=== PATIENT | female | born 1980 | race Caucasian/White ===

== ENCOUNTER 2016-10-17 19:59 | Emergency (ER) | payer SELFPAY ==
[~2016-10-17 19:59] MED LIST: HYDR-906 PO; NAPR-260 PO
== END 2016-10-17 21:34 | disposition left against medical advice (07) ==
LOC: E/R 19:59
DX: Z53.21 Procedure and treatment not carried out due to patient leaving prior to being seen by health care provider (principal)

== ENCOUNTER 2017-01-20 19:18 | Emergency (ER) | payer MEDICAID ==
[~2017-01-20] VITALS: Ht 152.4 cm; Wt 56.0 kg
[2017-01-20 19:34] VITALS: Ht 152.4 cm; Wt 56.0 kg
[2017-01-20] MEDS: KETOROLAC 15 MG INJ IM STA ×2 (22:00→22:03)
--- NOTE | 2017-01-20 22:21 | ERD ---
ER Documentation Chief Complaint Date/Time DATE: 01/20/17 TIME: 22:08 Chief Complaint rectal bleeding w/ hemmorhoids today HPI This 36-year-old Estonian-speaking female presents to emergency department with 3 day history of blood on toilet paper with wiping, and rectal pain. History of hemorrhoids. Patient denies constipation, dysuria, or hematuria. Translation provided by medical staff. Patient reports pain with ambulating, sitting, painful bowel movements. Patient has tried no [id number] medication for hemorrhoid symptoms. Reports that she eats a healthy diet, eats fiber, drinks water. His history of irritable bowel syndrome ROS All systems reviewed and are negative except as per history of present illness. Medications Home Meds Active Scripts Naproxen* (Naprosyn*) 500 Mg Tablet, 500 MG PO BID Y for PAIN AND/OR INFLAMMATION for 7 Days, #14 TAB Prov:ALONDRA,JOSSE 01/20/17 Hydrocortisone Acetate* (Anusol-HC*) 30 Gm Cream.gm., 1 APPLIC [place] BID for 7 Days , TUB Prov:ALONDRA,JOSSE 01/20/17 Naproxen* (Naprosyn*) 500 Mg Tablet, 500 MG PO BID Y for PAIN AND/OR INFLAMMATION, #30 TAB Prov:MONICA OQUENDO PA-C 08/01/16 Hydrocodone/Acetaminophen ([place] 5-325 Tablet) 1 Each Tablet, 1 TAB PO Q6H Y for PAIN, #10 TAB Prov:MONICA OQUENDO PA-C 08/01/16 Discontinued Scripts Naproxen* (Naprosyn*) 500 Mg Tablet, 500 MG PO BID Y for PAIN AND/OR INFLAMMATION, #30 TAB Prov:ALONDRA,JOSSE 01/20/17 Allergies Allergies: Coded Allergies: No Known Allergy (Unverified , 06/11/16) PMhx/Soc Medical and Surgical Hx: pt denies Medical Hx, pt denies Surgical Hx Hx Alcohol Use: Yes Hx Substance Use: No Hx Tobacco Use: No Smoking Status: Never smoker Physical Exam Vitals Vitals stable, triage notes reviewed Physical Exam Const: Well-appearing, no acute distress Head: Atraumatic Eyes: Normal Conjunctiva pink, PERRLA, EOMI, ENT: Normal External Ears, Nose and Mouth. Neck: Resp: Chest rise and fall symmetrically, no respiratory distress Cardio: Abd: Soft, non tender, non distended. Rectal exam large external hemorrhoid between [id number], no thrombus, or bleeding point noted. Sphincter with normal tone, no ulcers or lesions noted Skin: No petechiae or rashes Back: No midline or flank tenderness Ext: Neur: Awake and alert Psych: Normal Mood and Affect Results 24 hrs Laboratory Tests Test 01/20/17 21:39 Stool Occult Blood NEGATIVE Current Medications Medications (Trade) Dose Ordered Sig/Babatunde Route PRN Reason Start Time Stop Time Status Last Admin Dose Admin Ketorolac Tromethamine (Toradol) 15 mg ONCE STAT IM 01/20/17 21:40 01/20/17 22:17 DC Naproxen (Naprosyn) 500 mg ONCE ONCE PO 01/20/17 22:30 01/20/17 22:30 DC Naproxen (Naprosyn) 500 mg ONCE ONCE PO 01/20/17 22:30 01/20/17 22:31 DC 01/20/17 22:27 Interpretation text Stool for occult blood negative Procedures/MDM This 36-year-old female presents to emergency department for exacerbation of hemorrhoid. Patient reports rectal bleeding on toilet paper denies caden blood in toilet. Patient reports pain with sitting, has not taken any medication for symptomatic relief. Patient denies any previous hemorrhoid medication in use. Stool for occult blood with results pending. Anal fissure, Crohn's disease, ulcerative colitis, colorectal cancer, anal fistula, rectal prolapse not likely. Patient will be discharged home with Anusol HC, Naprosyn 1 tab p.o. twice daily as needed, use of a donut pillow, sitz baths, and general comfort care was discussed. Follow-up with primary physician for reevaluation and possible referral to gastroenterology for banding. I feel the patient is stable for discharge at this time. I have discussed results, examination findings, the treatment plan with the patient and family present prior to discharge. Indications for emergent reevaluation, side effects of medication were also discussed. All questions were answered. Patient verbalizes understanding and agrees with plan of care. Departure Diagnosis: Primary Impression: Hemorrhoids Hemorrhoid type: unspecified Qualified Code: K64.9 - Hemorrhoids, unspecified hemorrhoid type Condition: Good Patient Instructions: Hemorrhoids [facility] Additional Instructions: Thank you for for coming to [facility] for your care today. Please ask your nurse or provider if you have questions about your care today and do not leave until all your questions have been answered. Please use any medications given as directed and follow-up with your doctor (or the doctor you were referred to) in the next 2-3 days. If you do not have a primary care doctor you may follow up at the [facility] (listed below). You may also use motrin and tylenol as needed for fever and/or pain unless instructed otherwise by your provider or nurse. Indications for more urgent follow-up have been discussed, but you may return to the Emergency Department at ANY time for any worrisome or worsening symptoms. If you have abdominal pain, please know that no test or exam you received is perfect and you should follow up within 8 hours for continued pain. If you had any imaging studies today, such as an X-Ray or CT Scan, these studies will be reviewed later by a radiologist. You will be called if there are important findings that were not identified today, so make sure the contact information you provided at registration is correct. If you received any narcotic pain control medicine today, such as Vicodin, Morphine or Dilaudid, your coordination and judgment may be affected for a number of hours. Please do not drive or operate heavy machinery, and you may want someone to assist you at home. If you were given a prescription for narcotic medication, be aware that it is very addictive- use sparingly and only if necessary. JOSSE CANTU Jan 20, 2017 22:20
[2017-01-20] MEDS ORDERED: HYDR30CR75 PR (22:25)
[2017-01-20] MEDS ORDERED: NAPR-260 PO ×2 (22:25→22:29)
[2017-01-20] MEDS ORDERED: NAPROXEN 500 MG TAB PO ONE ×2 (22:30)
[2017-01-20 23:28] VITALS: BP 128/68; PULSE 77; RESP 18
== END 2017-01-20 23:29 | disposition home or self-care (01) ==
LOC: FTE 19:18
DX: K64.4 Residual hemorrhoidal skin tags (principal)
CPT/HCPCS: 82270; J1885; Z7610; 99284

== ENCOUNTER 2018-10-01 22:15 | Emergency (ER) | payer SELFPAY ==
[~2018-10-01] VITALS: Wt 59.4 kg
[~2018-10-01 22:15] MED LIST changes: +HYDR-4011 PO; -HYDR-906 PO; +HYDR30CR75 PR; -NAPR-260 PO; +NAPR-985 PO
[2018-10-01 22:17] VITALS: BP 116/73; PULSE 74; RESP 18
== END 2018-10-02 04:28 | disposition left against medical advice (07) ==
LOC: FTE 22:15
DX: Z53.21 Procedure and treatment not carried out due to patient leaving prior to being seen by health care provider (principal)